=== PATIENT | male | born 1980 | race Caucasian/White ===

== ENCOUNTER → 2019-09-16 | Outpatient (CLI) | payer OTHER | END | disposition home or self-care (01) | LOC: RAD 07:36 | PROVIDERS: ATTEND Student in an Organized Health Care Education/Training Program | DX: K57.10 Diverticulosis of small intestine without perforation or abscess without bleeding (principal); K21.9 Gastro-esophageal reflux disease without esophagitis | CPT/HCPCS: 74240 ==

== ENCOUNTER → 2020-05-25 | Outpatient (CLI) | payer OTHER ==
[~2020-05-25] MED LIST: ACET-1770 PO; BIOT1TAB3 PO; CELE100C PO; CHOL10003 PO; FLUT9.9S NAS; LEVO75TA5 PO; LORA10TA75 PO; ONDA-89 PO; OXYC5SOL8 PO; POLY17PO5 PO
[2020-05-25 08:09] LABS: BASOPHILS % (AUTO) 1 % (0-1); EOSINOPHILS % (AUTO) 2 % (1-7); LYMPHOCYTES % (AUTO) 34 % (22-44); MD NO; MEAN CORPUSCULAR HEMOGLOBIN 29.5 pg (27.5-34.5); MEAN CORPUSCULAR HGB CONC 33.7 g/dL (33.2-36.2); MEAN PLATELET VOLUME 9.8 fL (7.4-10.4); MONOCYTES % (AUTO) 8 % (2-9); NEUTROPHILS % (AUTO) 56 % (42-75); PLATELET COUNT 159 x10^3/uL (130-400); RED BLOOD COUNT 5.28 x10^6/uL (4.38-5.82); RED CELL DISTRIBUTION WIDTH 13.9 % (9.4-14.8)
[2020-05-25 08:19] LABS: ALBUMIN 4.2 g/dL (3.4-5.0); ANION GAP 5 mmol/L (5-15); CALCIUM 8.8 mg/dL (8.5-10.1); CHLORIDE 108 mmol/L (98-107); CHOLESTEROL, TOTAL 168 mg/dL (140-239); TOTAL IRON BINDING CAPACITY 323 mcg/dL (250-450); TRIGLYCERIDES 118 mg/dL (50-200); VLDL CHOLESTEROL 24 mg/dL (0-25)
[2020-05-25 08:45] LABS: % IRON SATURATION 34 % (20-55); ALANINE AMINOTRANSFERASE 41 U/L (12-78); ALKALINE PHOSPHATASE 41 U/L (45-117); BILIRUBIN,TOTAL 1.4 mg/dL (0.2-1.0); CHOL/HDL RATIO 3.1; CREATININE 1.05 mg/dL (0.7-1.3); FOLATE LEVEL 13.9 ng/mL (3.1-17.5); HDL CHOL % 33 % (26-37); HDL CHOLESTEROL (DIRECT) 55 mg/dL (40-60); IRON LEVEL 111 mcg/dL (65-175); LDL CHOLESTEROL,CALCULATED 89 mg/dL (54-169); LDL/HDL RATIO 1.6 (0.5-3.0); PREALBUMIN 26.2 mg/dL (20.0-40.0); TOTAL PROTEIN 7.3 g/dL (6.4-8.2)
== END | disposition home or self-care (01) ==
LOC: LAB 07:49
PROVIDERS: ATTEND Clinical Nurse Specialist
DX: Z00.00 Encounter for general adult medical examination without abnormal findings (principal); R63.8 Other symptoms and signs concerning food and fluid intake; K90.9 Intestinal malabsorption, unspecified; M25.50 Pain in unspecified joint; R53.81 Other malaise; R53.83 Other fatigue; E66.01 Morbid (severe) obesity due to excess calories; E03.9 Hypothyroidism, unspecified
CPT/HCPCS: 36415; 80053; 80061; 82306; 82607; 82746; 83540; 83550; 84134; 84207; 84425; 84443; 84591; 85025

== ENCOUNTER → 2020-08-19 | Outpatient (CLI) | payer OTHER ==
[2020-08-19 07:35] LABS: BASOPHILS % (AUTO) 1 % (0-1); EOSINOPHILS % (AUTO) 1 % (1-7); LYMPHOCYTES % (AUTO) 43 % (22-44); MEAN CORPUSCULAR HGB CONC 34.2 g/dL (33.2-36.2); MEAN PLATELET VOLUME 9.1 fL (7.4-10.4); MONOCYTES % (AUTO) 9 % (2-9); NEUTROPHILS % (AUTO) 47 % (42-75); PLATELET COUNT 154 x10^3/uL (130-400); RED BLOOD COUNT 5.01 x10^6/uL (4.38-5.82); RED CELL DISTRIBUTION WIDTH 13.4 % (9.4-14.8)
[2020-08-19 07:36] LABS: MD NO
[2020-08-19 07:47] LABS: ALBUMIN 4.1 g/dL (3.4-5.0); ANION GAP 4 mmol/L (5-15); CALCIUM 8.9 mg/dL (8.5-10.1); CHLORIDE 108 mmol/L (98-107); CHOLESTEROL, TOTAL 170 mg/dL (140-239); TOTAL IRON BINDING CAPACITY 308 mcg/dL (250-450); TRIGLYCERIDES 107 mg/dL (50-200); VLDL CHOLESTEROL 21 mg/dL (0-25)
[2020-08-19 08:14] LABS: % IRON SATURATION 43 % (20-55); ALANINE AMINOTRANSFERASE 33 U/L (12-78); ALKALINE PHOSPHATASE 42 U/L (45-117); BILIRUBIN,TOTAL 1.3 mg/dL (0.2-1.0); CHOL/HDL RATIO 3.5; CREATININE 0.87 mg/dL (0.7-1.3); HDL CHOL % 29 % (26-37); HDL CHOLESTEROL (DIRECT) 49 mg/dL (40-60); IRON LEVEL 133 mcg/dL (65-175); LDL CHOLESTEROL,CALCULATED 100 mg/dL (54-169); PREALBUMIN 24.5 mg/dL (20.0-40.0); TOTAL PROTEIN 7.1 g/dL (6.4-8.2)
[2020-08-19 08:15] LABS: FOLATE LEVEL > 20.0 ng/mL (3.1-17.5)
== END | disposition home or self-care (01) ==
LOC: LAB 07:14
PROVIDERS: ATTEND Clinical Nurse Specialist
DX: Z00.00 Encounter for general adult medical examination without abnormal findings (principal); E55.9 Vitamin D deficiency, unspecified; E56.9 Vitamin deficiency, unspecified; K90.9 Intestinal malabsorption, unspecified; E66.01 Morbid (severe) obesity due to excess calories; R53.81 Other malaise; R63.8 Other symptoms and signs concerning food and fluid intake; M25.50 Pain in unspecified joint; R53.83 Other fatigue; E03.9 Hypothyroidism, unspecified
CPT/HCPCS: 36415; 80053; 80061; 82306; 82607; 82746; 83540; 83550; 84134; 84207; 84425; 84443; 84591; 85025